=== PATIENT | female | born 1980 | race African-American/Black ===

== ENCOUNTER 2018-02-13 05:25 | Inpatient (IN) | payer OTHER ==
[2018-02-12 08:43] VITALS: BMI 24.7
[2018-02-13] MEDS ORDERED: BUPIVACAINE HCL/PF 0.5% (5MG/ML) 10 ML VIAL ONE (08:12)
[2018-02-13] MEDS ORDERED: MIDAZOLAM HCL 2 MG/2 ML SINGLE DOSE VIAL ONE ×2 (08:13)
[2018-02-13] MEDS ORDERED: ONDANSETRON 4 MG/2 ML VIAL IVPUSH PRN ×2 (08:25→11:37)
[2018-02-13] MEDS ORDERED: ACETAMINOPHEN 1000 MG/100 ML VIAL (NON FORMULARY) IVPB ONE (08:25)
[2018-02-13] MEDS ORDERED: ROCURONIUM BROMIDE 50 MG/5 ML VIAL ONE (09:13)
[2018-02-13] MEDS ORDERED: KETAMINE HCL 200 MG/20 ML VIAL ONE (09:13)
[2018-02-13] MEDS ORDERED: KETOROLAC TROMETHAMINE 30 MG/1 ML VIAL ONE (09:14)
[2018-02-13] MEDS ORDERED: SODIUM CHLORIDE 0.9% P/F 10 ML VIAL IJ ONE (09:14)
[2018-02-13] MEDS ORDERED: ESMOLOL HCL 100,000 MCG/10 ML VIAL ONE (09:14)
[2018-02-13] MEDS ORDERED: ceFAZolin SODIUM 1 GM VIAL ONE (09:14)
[2018-02-13] MEDS ORDERED: DEXAMETHASONE SOD PHOSPHATE 4 MG/1 ML VIAL ONE ×2 (09:14→10:14)
[2018-02-13] MEDS ORDERED: PROPOFOL 20 ML ONE ×3 (09:15→11:13)
--- NOTE | 2018-02-13 09:21 | HP ---
Admitting History and Physical - Primary Care Physician PCP: Thao Arroyo - Admission Chief Complaint: 37yo P0 with 18 week size fibroid uterus, heavy menses, interested in fertility History of Present Illness: Aviane for control HSG showed Right tubal blockage MRI showed multiple fibroids in one mass posterior fundal location Limitations to Obtaining History: No Limitations - Past Medical History ...LMP: 02/07/18 ...: 1 (ETOP x 1) ...Para: 0 - Past Surgical History Past Surgical History: Yes: None - Smoking History Smoking history: Never smoked Have you smoked in the past 12 months: No - Alcohol/Substance Use Hx Alcohol Use: No History of Substance Use: reports: None - Social History Usual Living Arrangement: Yes: With Spouse Occupation: accountant property History of Recent Travel: No Home Medications - Allergies Allergies/Adverse Reactions: Allergies Allergy/AdvReac Type Severity Reaction Status Date / Time No Known Allergies Allergy Verified 02/12/18 08:44 - Home Medications Home Medications: Ambulatory Orders Celecoxib [Celebrex] 200 mg PO BID 02/12/18 Bisacodyl Suppository [Dulcolax Suppository -] 10 mg RC DAILY #7 supp.rect 02/15 Norethindrone [Jessie] 0.35 mg PO DAILY #30 tablet 02/15/18 Norethindrone [Jessie] 0.35 mg PO DAILY 30 Days tablet 02/15/18 Family Disease History - Family Disease History Family Disease History: Diabetes: Grandparent Review of Systems - Review of Systems Constitutional: reports: No Symptoms Eyes: reports: No Symptoms HENT: reports: No Symptoms Neck: reports: No Symptoms Cardiovascular: reports: No Symptoms Respiratory: reports: No Symptoms Gastrointestinal: reports: No Symptoms Genitourinary: reports: No Symptoms Breasts: reports: No Symptoms Reported Musculoskeletal: reports: No Symptoms Integumentary: reports: No Symptoms Neurological: reports: No Symptoms Endocrine: reports: No Symptoms Hematology/Lymphatic: reports: No Symptoms Psychiatric: reports: No Symptoms Physical Examination Vital Signs: Vital Signs Temperature 99.3 F 02/13/18 08:25 Pulse Rate 99 H 02/13/18 08:25 Respiratory Rate 16 02/13/18 08:25 Blood Pressure 136/75 02/13/18 08:25 O2 Sat by Pulse Oximetry (%) 98 02/13/18 08:01 Constitutional: Yes: Well Nourished, No Distress, Calm Eyes: Yes: WNL, Conjunctiva Clear, EOM Intact HENT: Yes: WNL, Atraumatic, Normocephalic Neck: Yes: WNL, Supple, Trachea Midline Cardiovascular: Yes: WNL, Regular Rate and Rhythm Respiratory: Yes: WNL, Regular, CTA Bilaterally Gastrointestinal: Yes: WNL, Normal Bowel Sounds, Soft, Palpable Mass (18week pelvic mass), Other Renal/: Yes: WNL Breast(s): Yes: WNL Musculoskeletal: Yes: WNL Extremities: Yes: WNL Edema: Yes Peripheral Pulses WNL: Yes Integumentary: Yes: WNL Neurological: Yes: WNL, Alert, Oriented ...Motor Strength: WNL Psychiatric: Yes: WNL, Alert, Oriented Imaging - Results Other: Other (HSG - R tubal obstruction) Assessment/Plan 37yo P0 for Abdominal myomectomy, possible hysterectomy and associated procedure Consent signed and witnessed RBA explained
[2018-02-13] MEDS ORDERED: HEPARIN NA (PORCINE) 5,000 UNITS/ML 1ML VIAL ONE (09:29)
[2018-02-13] MEDS ORDERED: ceFAZolin SODIUM 1 GM VIAL IVPB ONE (09:40)
[2018-02-13] MEDS ORDERED: GLYCOPYRROLATE 0.2 MG/1 ML VIAL ONE (10:14)
[2018-02-13] MEDS ORDERED: LIDOCAINE HCL/PF 2% SDV 5ML VIAL ONE (10:15)
[2018-02-13] MEDS ORDERED: NEOSTIGMINE METHYLSULFATE 0.5 MG/ML - 10 ML MDV ONE (10:18)
[2018-02-13] MEDS ORDERED: IBUPROFEN 800 MG/8 ML IJ IVPB PRN (11:37)
[2018-02-13] MEDS ORDERED: oxyCODONE HCL 5 MG TABLET PO PRN (11:37)
--- NOTE | 2018-02-13 11:37 | OP ---
Operative Note - Note: Operative Date: 02/13/18 Pre-Operative Diagnosis: 37yo P0 with large 18 week fibroid uterus, Right tubal occlusion desiring fertility. Operation: Abdominal myomectomy Findings: 1. 18cm posterior wall complex fibroid, consisting of several fibroids in one capsule 2. Normal bilateral tubes and ovaries Post-Operative Diagnosis: Same as Pre-op Surgeon: Thao Arroyo Airworthiness Inspector: Roldan Hayden Anesthesiologist/YACHT RIGGER: George Goldsmith Anesthesia: General Specimens Removed: Fibroid Estimated Blood Loss (mls): 600 Drains & Tubes with Location: Cell saver - 250cc transfused back Drains, Volume Out (mls): 250 Blood Volume Replaced (mls): 250 Fluid Volume Replaced (mls): 1,500 Operative Report Dictated: Yes
[2018-02-13] MEDS ORDERED: ACETAMINOPHEN INJECTION 100 ML IVPB ONE (11:49)
[2018-02-13] MEDS: ELECTROLYTE-148 SOLN 1,000 ML IV SCH (13:13)
[2018-02-13] MEDS: KETOROLAC TROMETHAMINE 30 MG/1 ML VIAL IM SCH (17:13)
--- NOTE | 2018-02-13 19:26 | OP ---
DATE OF OPERATION: 02/13/2018 PREOPERATIVE DIAGNOSIS: A 37-year-old para 0 with large 18-week fibroid uterus and right tubal occlusion desiring fertility. OPERATION: Abdominal myomectomy. FINDINGS: An 18-cm posterior wall complex fibroid consisting of several fibroids in 1 capsule. Two normal bilateral tubes and ovaries. POSTOPERATIVE DIAGNOSIS: A 37-year-old para 0 with large 18-week fibroid uterus and right tubal occlusion desiring fertility. SURGEON: Thao Arroyo MD TRAPPER BIRD: Roldan Hayden MD ANESTHESIOLOGIST: George BENITO ANESTHESIA: General. SPECIMEN REMOVED: Fibroid. DESCRIPTION OF OPERATIVE PROCEDURE: After assuring informed consent, the patient was brought to the operating room where she was placed in dorsal supine position. Abdomen was prepped and draped in sterile fashion. Alan catheter was placed prior to the prepping. The Pfannenstiel skin incision was created with a scalpel and carried down to the level of fascia with Bovie cautery. Fascia was incised bilaterally with Bovie cautery and dissected off the rectus abdominis muscle with Bovie cautery. The rectus abdominis was split in the midline. Peritoneum was identified and entered bluntly and dissected anteriorly and superiorly. The uterus was brought into the incision, and a very large fibroid was visualized through the incision and was exteriorated with grasping it with single-tooth tenaculum and sweetheart tenaculum dissected off its capsule with traction and counter traction and dissecting with Bovie cautery. Small bleeders in the base of the fibroids were clamped with hemostats and tied off with 0 Vicryl suture. The fibroid was fully exteriorized and sent to Pathology. The rest of the uterus was exteriorized and found to be close to normal size. The fibroid base was sutured in several layers with 0 V-Lock suture in running fashion, and a final layer was created with 2-0 V-Lock suture. Subsequently, the 2-0 Vicryl was used to create a baseball stitch to reapproximate serosa, and excess serosa was excised and sent to Pathology with the rest of the specimen. Interceed was placed on a hemostatic baseball stitch, which was on the posterior wall of the uterus. Abdomen was copiously irrigated with normal saline. The abdomen was cleared of clots and debris. The peritoneum was repaired with 0 Vicryl in running fashion. Muscle was reapproximated in the midline. The fascia was closed with 0 Vicryl suture in running fashion. The subcutaneous space was closed with 2-0 Vicryl, and skin was closed with 4-0 Monocryl in subcuticular fashion. Throughout the whole process Cell Saver was used and generated 250 mL of RBCs, which were transfused back to the patient. Instrument and sponge count was consulted x2. The patient put on 250 mL of urine and received 1500 mL of IV fluid. Estimated blood loss of 600 mL of blood. The patient was subsequently extubated and brought to the recovery room in stable condition. Chilo BORGES/[id number]
[2018-02-13] MEDS: CEFAZOLIN 2 GM/D5W 2 GM/50 ML ML IVPB SCH (19:27)
[2018-02-14] MEDS: CEFAZOLIN 2 GM/D5W 2 GM/50 ML ML IVPB SCH (02:19)
[2018-02-14] MEDS: KETOROLAC TROMETHAMINE 30 MG/1 ML VIAL IM SCH ×3 (02:33→17:17)
[2018-02-14] MEDS: IBUPROFEN 600 MG TABLET (FP) PO PRN (06:36)
[2018-02-14 07:58] LABS: HEMATOCRIT 37.2 % (32.4-45.2); HEMOGLOBIN 12.7 GM/dL (10.7-15.3); MCH 31.6 pg (25.7-33.7); MCHC 34.1 g/dl (32.0-36.0); MEAN CELL VOLUME 92.9 fl (80-96); MEAN PLT VOLUME 7.2 fl (7.5-11.1); PLATELET COUNT 244 K/MM3 (134-434); RBC 4.01 M/mm3 (3.60-5.2); RDW 12.3 % (11.6-15.6); WHITE BLOOD COUNT 12.9 K/mm3 (4.0-10.0)
--- NOTE | 2018-02-14 08:36 | PN ---
Progress Note, Physician Chief Complaint: No complains - Current Medication List Current Medications: Active Medications Fentanyl (Sublimaze Injection -) 50 mcg IVPUSH [id number] PRN PRN Reason: PAIN-PACU ORDER X 4 DOSES ONLY Last Admin: 02/13/18 12:45 Dose: 50 mcg Lactated Ringer's (Lactated Ringers Solution) 1,000 mls @ 75 mls/hr IV ASDIR ARLEEN Parenteral Electrolytes (Plasma-Lyte 148 -) 1,000 mls @ 125 mls/hr IV ASDIR ARLEEN Last Admin: 02/13/18 13:13 Dose: 0 mls Ibuprofen (Motrin -) 600 mg PO Q6H PRN PRN Reason: FEVER Last Admin: 02/14/18 06:36 Dose: 600 mg Ibuprofen (Caldolor Injection -) 800 mg IVPB Q6H PRN PRN Reason: Fever - If PO not effective. Last Admin: 02/13/18 23:01 Dose: 800 mg Ketorolac Tromethamine (Toradol Injection -) 30 mg IM Q8H-IV ARLEEN Stop: 02/16/18 17:59 Last Admin: 02/14/18 02:33 Dose: Not Given Ondansetron HCl (Zofran Injection) 4 mg IVPUSH Q6H PRN PRN Reason: NAUSEA AND/OR VOMITING Ondansetron HCl (Zofran Injection) 4 mg IVPUSH Q6H PRN PRN Reason: NAUSEA Oxycodone HCl (Roxicodone -) 5 mg PO Q4H PRN PRN Reason: PAIN LEVEL 1-5 Stop: 02/16/18 23:59 - Objective Vital Signs: Vital Signs Temperature 98.8 F 02/14/18 06:00 Pulse Rate 79 02/14/18 06:00 Respiratory Rate 18 02/14/18 06:00 Blood Pressure 131/61 02/14/18 06:00 O2 Sat by Pulse Oximetry (%) 100 02/13/18 21:00 Constitutional: Yes: Well Nourished, No Distress, Calm Eyes: Yes: WNL, Conjunctiva Clear, EOM Intact HENT: Yes: WNL, Atraumatic, Normocephalic Neck: Yes: WNL, Supple, Trachea Midline Cardiovascular: Yes: WNL, Regular Rate and Rhythm Respiratory: Yes: WNL, Regular, CTA Bilaterally Gastrointestinal: Yes: WNL, Normal Bowel Sounds, Soft Genitourinary: Yes: WNL Breast(s): Yes: WNL Musculoskeletal: Yes: WNL Extremities: Yes: WNL Integumentary: Yes: WNL Wound/Incision: Yes: Clean/Dry, Well Approximated Neurological: Yes: WNL, Alert, Oriented ...Motor Strength: WNL Psychiatric: Yes: WNL, Alert, Oriented Labs: CBC, BMP 02/14/18 06:20 Assessment/Plan 37yo P0 s/p abdominal Myomectomy VSS, Afebrile Alan d/tommy OOB, uses incentive spirometer Pain well controlled cont. routine PostOp care
--- NOTE | 2018-02-14 18:28 | PATH ---
Surgical Pathology Report Patient Name: DENNY BATISTA [facility]. Rec. #: [id number] /Age/Gender: 1980 (Age: 37) / F Account: [id number] Location: [facility] OBS/FUNERAL DIRECTOR/EMBALMER Taken: 02/13/2018 Received: 02/13/2018 Reported: 02/14/2018 Physicians: Thao Arroyo M.D. Specimen(s) Received UTERINE FIBROID Clinical History Fibroid uterus Final Diagnosis THE PHARYNX AWAIT PERMANENT EXCISION: LEIOMYOMA WITH FOCAL DEGENERATIVE CHANGE. SEPARATE PORTION OF SUBSEROSAL SMOOTH MUSCLE. Electronically Signed Makeda Vernon M.D. Gross Description Received in formalin labeled "uterine fibroid," is a 1264 g, 17.0 x 13.0 x 8.5 cm intact nodule. The outer surface is rankin-pink and smooth. Sectioning reveals rankin, rubbery parenchyma with whorled architecture and small foci of degeneration. Also received within the same container is a 12.0 x 4.1 x 0.2 cm portion of rankin-pink soft tissue, possibly consistent with serosal tissue. Civil Structural Engineer sections are submitted in 7 cassettes as follows: [id number] nodule; 7-unit support representative separately received serosal tissue. /02/13/2018 saudi02/13/2018
[2018-02-14] MEDS: ELECTROLYTE-148 SOLN 1,000 ML IV SCH (19:50)
[2018-02-14] MEDS: LACTATED RINGERS SOLUTION 1,000 ML IV SCH ×2 (19:50→19:51)
[2018-02-15] MEDS: KETOROLAC TROMETHAMINE 30 MG/1 ML VIAL IM SCH ×3 (01:47→18:36)
[2018-02-15] MEDS ORDERED: PT OWN MED DRAWER 7, Y5N ONE (06:35)
[2018-02-15] MEDS: LACTATED RINGERS SOLUTION 1,000 ML IV SCH (09:58)
[2018-02-15] MEDS: ELECTROLYTE-148 SOLN 1,000 ML IV SCH (11:49)
[2018-02-15] MEDS: IBUPROFEN 600 MG TABLET (FP) PO PRN (11:50)
--- NOTE | 2018-02-15 13:47 | PN ---
Progress Note, Physician Chief Complaint: No complains - Current Medication List Current Medications: Active Medications Fentanyl (Sublimaze Injection -) 50 mcg IVPUSH [id number] PRN PRN Reason: PAIN-PACU ORDER X 4 DOSES ONLY Last Admin: 02/13/18 12:45 Dose: 50 mcg Lactated Ringer's (Lactated Ringers Solution) 1,000 mls @ 75 mls/hr IV ASDIR [facility] Last Admin: 02/15/18 09:58 Dose: Not Given Parenteral Electrolytes (Plasma-Lyte 148 -) 1,000 mls @ 125 mls/hr IV ASDIR ARLEEN Last Admin: 02/15/18 11:49 Dose: Not Given Ibuprofen (Motrin -) 600 mg PO Q6H PRN PRN Reason: FEVER Last Admin: 02/15/18 11:50 Dose: 600 mg Ibuprofen (Caldolor Injection -) 800 mg IVPB Q6H PRN PRN Reason: Fever - If PO not effective. Last Admin: 02/13/18 23:01 Dose: 800 mg Ketorolac Tromethamine (Toradol Injection -) 30 mg IM Q8H-IV ARLEEN Stop: 02/16/18 17:59 Last Admin: 02/15/18 09:58 Dose: Not Given Ondansetron HCl (Zofran Injection) 4 mg IVPUSH Q6H PRN PRN Reason: NAUSEA AND/OR VOMITING Ondansetron HCl (Zofran Injection) 4 mg IVPUSH Q6H PRN PRN Reason: NAUSEA Oxycodone HCl (Roxicodone -) 5 mg PO Q4H PRN PRN Reason: PAIN LEVEL 1-5 Stop: 02/16/18 23:59 - Objective Vital Signs: Vital Signs Temperature 98.8 F 02/15/18 06:57 Pulse Rate 88 02/15/18 06:57 Respiratory Rate 20 02/15/18 06:57 Blood Pressure 136/78 02/15/18 06:57 O2 Sat by Pulse Oximetry (%) 99 02/15/18 09:00 Constitutional: Yes: Well Nourished, No Distress, Calm Eyes: Yes: WNL, Conjunctiva Clear, EOM Intact HENT: Yes: WNL, Atraumatic, Normocephalic Neck: Yes: WNL, Supple, Trachea Midline Cardiovascular: Yes: WNL, Regular Rate and Rhythm Respiratory: Yes: WNL, Regular, CTA Bilaterally Gastrointestinal: Yes: WNL, Normal Bowel Sounds, Soft ...Rectal Exam: Yes: WNL Genitourinary: Yes: WNL Breast(s): Yes: WNL Musculoskeletal: Yes: WNL Extremities: Yes: WNL Integumentary: Yes: WNL Wound/Incision: Yes: Clean/Dry, Well Approximated Neurological: Yes: WNL, Alert, Oriented ...Motor Strength: WNL Psychiatric: Yes: WNL, Alert, Oriented Labs: CBC, BMP 02/14/18 06:20 Assessment/Plan 37yo P0 s/p abdominal Myomectomy VSS, Afebrile Voiding, ambulating Tolarating regular diet D/c home No heavy lifting RTO in 1 wk
--- NOTE | 2018-02-15 15:32 | DS ---
Physical Examination Vital Signs: Vital Signs Temperature 98.2 F 02/15/18 15:07 Pulse Rate 94 H 02/15/18 15:07 Respiratory Rate 18 02/15/18 15:07 Blood Pressure 129/78 02/15/18 15:07 O2 Sat by Pulse Oximetry (%) 99 02/15/18 09:00 Constitutional: Yes: Well Nourished, No Distress, Calm Eyes: Yes: WNL, Conjunctiva Clear, EOM Intact HENT: Yes: WNL, Atraumatic, Normocephalic Neck: Yes: WNL, Supple, Trachea Midline Cardiovascular: Yes: WNL, Regular Rate and Rhythm Respiratory: Yes: WNL, Regular, CTA Bilaterally Gastrointestinal: Yes: WNL, Normal Bowel Sounds, Soft ...Rectal Exam: Yes: WNL Renal/: Yes: WNL Breast(s): Yes: WNL Musculoskeletal: Yes: WNL Extremities: Yes: WNL Integumentary: Yes: WNL Wound/Incision: Yes: Clean/Dry, Well Approximated Neurological: Yes: WNL, Alert, Oriented ...Motor Strength: WNL Psychiatric: Yes: WNL, Alert, Oriented Labs: CBC, BMP 02/14/18 06:20 Discharge Summary Reason For Visit: FIBROIDS UTERUS Procedures: Principal: Myomectomy Other Procedures: Myomectomy Hospital Course: unremarkable Condition: Good - Instructions Diet, Activity, Other Instructions: Dr. Thao Arroyo Surgical Garment Fitter discharge instructions Physical activity Resume your normal everyday activity as tolerated no heavy lifting or exercise until seen by your surgeon. You may walk unlimited skyler of and climb stairs. You may resume driving the car when you feel safe and comfortable behind the wheel. No sexual activity as instructed by Dr. Arroyo. Wound care If you have a bandage, leave it on, and keep dry for 48-72 hours. After that time discard the outer bandage. If they are tapes on the skin under the out of bandage leave them in place. They will peel off in the next 7 to 10 days. Do Not Peel them off. You may shower the day after surgery. If there are tapes present on the skin, you may shower over them. Diet There are no dietary restrictions. Eat healthy, high-fiber foods. Drink 6 to 8 glasses of liquid each day. This will assist in keeping your bowels are regular. Pain management You may take Tylenol or acetaminophen or Ibuprofen (for example, Motrin, Advil etc.) from my pain prescription medication is ordered should be taken as prescribed for moderate to severe pain. Call Dr. Arroyo for any of the following: Severe pain not relieved by medication Fever of 101 or higher Excessive bleeding or drainage on dressing Inability to urinate Call the office at [phone] for an appointment in seven days. Referrals: Thao Arroyo MD [Staff Physician] - Disposition: HOME - Home Medications Comprehensive Discharge Medication List: Ambulatory Orders Celecoxib [Celebrex] 200 mg PO BID 02/12/18
[2018-02-15 17:48] VITALS: BP 123/77; PULSE 85; TEMP 98.3
== END 2018-02-15 19:10 | disposition home or self-care (01) | DRG 743 ==
LOC: JSAMEDAYSX 05:25 → J3W 13:45 → J8W 02-14 20:01
PROVIDERS: ADMIT Obstetrics & Gynecology; ATTEND Obstetrics & Gynecology
PROC: 0UB90ZZ Excision of Uterus, Open Approach (ICD-10-PCS; principal; 2018-02-13 09:00)
DX: D25.9 Leiomyoma of uterus, unspecified (principal)
CPT/HCPCS: 36415; 85027; 86900; 88305-TC; 94010; 94760; J0131; J1644

== ENCOUNTER 2023-03-05 15:25 | Emergency (ER) | payer BC, OTHER ==
[2023-03-05 15:50] VITALS: BP 142/84; PULSE 101; RESP 16; TEMP 100.5; BMI 25.8
[2023-03-05] MEDS ORDERED: LIDOCAINE HCL 2% JELLY (30 ML/TUBE) TP ONE (15:55)
[2023-03-05] MEDS ORDERED: LIDOCAINE HCL 2% JELLY 10 ML CARTRIDGE ONE (16:06)
== END 2023-03-05 16:55 | disposition home or self-care (01) ==
LOC: FER 15:25
DX: N75.0 Cyst of Bartholin's gland (principal)
CPT/HCPCS: 99283-25